=== PATIENT | male | born 1935 | race Caucasian/White ===

== ENCOUNTER 2024-11-21 15:49 | Inpatient (IN) | payer MEDICARE, BC ==
[~2024-11-21] VITALS: Ht 180.3 cm; Wt 79.5 kg
[2024-11-21] MEDS ORDERED: verapamil 2.5 mg/ml inj IV ONE (15:54)
[2024-11-21] MEDS ORDERED: LIDOcaine 1% (10mg/ml) 2ml vial ONE (15:54)
[2024-11-21] MEDS ORDERED: fentaNYL/PF 50MCG/1 ML 2ML syringe ONE (15:55)
[2024-11-21] MEDS ORDERED: heparin 1,000 UNITS/NS 500ml 0 ML ONE (15:55)
[2024-11-21] MEDS ORDERED: iohexol 350 MG/ML 50ML vial IV ONE (15:55)
[2024-11-21] MEDS ORDERED: heparin 1,000unit/ml 10ml vial 0 ML ONE (15:55)
[2024-11-21] MEDS ORDERED: midazolam 1 mg/ML 2ml injection ONE (15:55)
[2024-11-21] MEDS ORDERED: nitroGLYCERIN 500mcg/5mL D5W 0 ML IV ONE (15:55)
[2024-11-21] MEDS ORDERED: iohexol 350MG/ML 100ml bottle IV ONE (15:55)
[2024-11-21] MEDS ORDERED: pantoprazole 40 MG vial IV SCH (16:00)
--- NOTE | 2024-11-21 16:00 | Physician Documentation ---
History of Present Illness ~ Chief Complaint: Bloody Emesis Stated Complaint: STEMI Time Seen by MD: 15:50 Source: patient, EMS HPI The patient presents as a possible STEMI as well as vomiting blood. Per EMS, he arrives from home. He had multiple episodes of vomiting bright red blood, filled up a sink. EKG also showed findings concerning for STEMI and so he was diverted here for Cardiology evaluation. When I speak to the patient, he does report multiple episodes of vomiting blood, tells me that he covered his house in blood. He also reports having dark bloody stools. He denies having any chest pain. He denies any other chest related symptoms like shortness of breath. No dizziness or syncope. He denies any current abdominal pain. He denies any history of GI bleed. He tells me he is on a blood thinner. EMS reports that it is Plavix. EMS did give aspirin during transport. Medication Reconciliation Allergies: Coded Allergies: No Known Allergies (Unverified , 11/21/24) Review of Systems Cardiovascular: Denies: chest pain Gastrointestinal: Reports: hematemesis, rectal bleeding; Denies: abdominal pain Physical Exam Vital Signs: Heart Rate: 104, Respiratory Rate: 16, BP: 119/73, Pulse Oximetry: 90, Weight: 79.550 Oxygen Flow Rate: 0 Physical Exam General: This is a elderly man lying quietly in bed with his eyes closed, arrives by EMS HEENT: Atraumatic, oropharynx appears dry Heart: Tachycardia, appears regular, perfusion to the extremities is intact Lungs: normal work of breathing, normal oxygen saturation on room air Abdomen: Soft, nondistended, nontender all quadrants Neuro: Alert and oriented, no focal deficits Psychiatric: Calm and cooperative with exam Progress Results/Orders Results/Orders Orders - KESHAWN SHANKS MD Chest,Single View (11/21/24 15:50) Monitor (11/21/24 15:50) Saline Lock (11/21/24 15:50) Oxygen (11/21/24 15:50) Hs Troponin I W Calculations (11/21/24 18:50) Page Hospitalist (11/21/24 16:50) Completed Orders - KESHAWN SHANKS MD Chest,Single View (11/21/24 15:50) Cbc/Diff (11/21/24 15:50) PBNP (11/21/24 15:50) Electrocardiogram (11/21/24 15:50) CMP (11/21/24 15:50) Hs Troponin I W Calculations (11/21/24 15:50) Hs Troponin I W Calculations (11/21/24 17:50) Type And Screen (11/21/24 15:50) Pt Inr (11/21/24 15:50) PTT (11/21/24 15:50) Ondansetron Inj. (Zofran 4mg/2ml Vial) (11/21/24 15:55) Lidocaine 1%/Pf 2ml (Xylocaine-Mpf 1% Vi (11/21/24 15:54) Verapamil Inj (Verapamil Inj) (11/21/24 15:54) Midazolam 1 Mg/Ml 2ml Inj. (Versed 1 Mg/ (11/21/24 15:55) Fentanyl/Pf (Fentanyl 0.05 Mg/Ml Syringe (11/21/24 15:55) Iohexol 350mg/Ml 50ml Inj (Omnipaque 350 (11/21/24 15:55) Heparin 1,000unit/Ml 10ml Vial (Heparin (11/21/24 15:55) Iohexol 350mg/Ml 100ml (Omnipaque 350mg/ (11/21/24 15:55) Heparin 1,000 Units/Ns 500ml (Heparin 1, (11/21/24 15:55) Nitroglycerin 500mcg/5ml D5w (Nitroglyce (11/21/24 15:55) Pantoprazole 40mg Iv (Protonix 40mg Iv) (11/21/24 16:00) Pantoprazole 40mg Iv (Protonix 40mg Iv) (11/21/24 16:00) Lipase (11/21/24 15:58) Medications Received in ER Medications (Trade) Dose Ordered Sig/Edin Route PRN Reason Start Time Stop Time Status Last Admin Dose Admin (Zofran 4mg/2ml vial) 4 mg ONCE ONCE IV 11/21/24 15:55 11/21/24 15:56 DC 11/21/24 16:04 4 MG (Protonix 40mg IV) 40 mg ONCE ONCE IV 11/21/24 16:00 11/21/24 16:04 DC 11/21/24 16:05 40 MG Vital Signs 11/21/24 11/21/24 11/21/24 15:52 16:09 17:32 Pulse 104 93 Resp 16 16 22 B/P (MAP) 119/73 102/66 (78) Pulse Ox 90 91 O2 Flow Rate 0 0 Laboratory Tests Test 11/21/24 15:58 11/21/24 17:26 White Blood Count 5.3 Red Blood Count 4.61 L Hemoglobin 15.3 Hematocrit 44.4 Mean Corpuscular Volume 96.3 Mean Corpuscular Hemoglobin 33.1 H Mean Corpuscular Hemoglobin Concent 34.3 Red Cell Distribution Width 13.7 Platelet Count 140 Mean Platelet Volume 7.3 L Neutrophils (%) (Auto) 94.1 H Lymphocytes (%) (Auto) 3.8 L Monocytes (%) (Auto) 1.9 L Eosinophils (%) (Auto) 0 Basophils (%) (Auto) 0.2 Neutrophils # (Auto) 5.0 Lymphocytes # (Auto) 0.2 L Monocytes # (Auto) 0.1 Eosinophils # (Auto) 0.0 Basophils # (Auto) 0.0 CBC Comment Prothrombin Time 11.4 INR International Normalized Ratio 1.1 Activated Partial Thromboplast Time 24 Coagulation Comments Sodium Level 141 Potassium Level 3.5 Chloride Level 107 Carbon Dioxide Level 23.1 L Anion Gap 11 Blood Urea Nitrogen 29 H Creatinine 1.12 H Estimated GFR/1.73 m2 62 BUN/Creatinine Ratio 25.9 H Glucose Level 134 H Calcium Level 8.7 Total Bilirubin 1.2 H Aspartate Amino Transf (AST/SGOT) 39 H Alanine Aminotransferase (ALT/SGPT) 48 Alkaline Phosphatase 80 Troponin I High Sensitivity 11 17 Pro-B-Type Natriuretic Peptide 296 Total Protein 6.3 L Albumin 3.7 Globulin 2.6 L Albumin/Globulin Ratio 1.4 Lipase 19 Chemistry Comments Troponin I High Sens Percent Delta 54 Troponin I Hi Sens Absolute Change 6 EKG/XRAY/CT/US/VASC/MRI EKG : Additional Comment I personally interpreted the EKG and this shows: Sinus tachycardic, rate 103, Q-waves in the inferior leads, nonspecific T-wave changes in the lateral leads, no acute STEMI Chest X-Ray : Additional Comments I personally reviewed the x-ray, and it shows: No acute consolidation, pulmonary edema, or widened mediastinum Consults/PCP Consults/PCP : Additional Comment Consult: I spoke to the GI team, they recommended NPO at midnight and endoscopy in the morning. Consult: I spoke to the internal medicine service, for admission in the hospital Medical Decision Making Diff Dx GI Bleed:Consideration: Include: Bleeding diathesis, Blood loss anemia, Esophageal varicies, Gastritis, PUD Assessment The patient presents as a possible STEMI, however per his history and exam this appears more consistent with an upper GI bleed. His EKG here does not appear consistent with a STEMI, and so the STEMI code was discontinued. His troponin returns normal. He was given Zofran and IV Protonix. Labs show no acute anemia or other acute abnormality. Given his large volume hematemesis and concern for GI bleed, he will be admitted to the medicine service with plan for GI consult and endoscopy tomorrow. Departure Impression: Primary Impression: Hematemesis Referrals: NO PRIMARY CARE PROVIDER (PCP) Signature Scribe Signature: na Attestation: KESHAWN Nair MD November 21, 2024 16:00
[2024-11-21] MEDS: ondansetron/PF 4mg/2ml inj IV ONE (16:04)
[2024-11-21] MEDS: pantoprazole 40 MG vial IV ONE (16:05)
[2024-11-21 16:07] LABS: BASOPHILS % (AUTO) 0.2 % (0-1); EOSINOPHILS % (AUTO) 0 % (0-6); HEMATOCRIT 44.4 % (42.0-52.0); HEMOGLOBIN 15.3 g/dl (14.0-17.9); LYMPHOCYTES # (AUTO) 0.2 X10'3 (1.1-4.8); LYMPHOCYTES % (AUTO) 3.8 % (21-51); MEAN CORPUSCULAR HEMOGLOBIN 33.1 PG (27.0-31.0); MEAN CORPUSCULAR HGB CONC 34.3 g/dL (33.0-36.5); MEAN CORPUSCULAR VOLUME 96.3 FL (78-98); MEAN PLATELET VOLUME 7.3 FL (7.4-10.4); MONOCYTES # (AUTO) 0.1 X10'3 (0-0.9); MONOCYTES % (AUTO) 1.9 % (2-12); NEUTROPHILS % (AUTO) 94.1 % (42-75); PLATELET COUNT 140 X10'3 (140-440); RED BLOOD COUNT 4.61 X10'6 (4.70-6.10); RED CELL DISTRIBUTION WIDTH 13.7 % (11.5-14.5); WHITE BLOOD COUNT 5.3 X10'3 (4.5-11.0)
--- NOTE | 2024-11-21 16:17 | RADIOLOGY REPORT ---
EXAM: XR Chest, 1 View CLINICAL INDICATION: CP TECHNIQUE: Frontal view of the chest. COMPARISON: None FINDINGS: LUNGS AND PLEURAL SPACES: Unremarkable. No consolidation. No pneumothorax. HEART: Unremarkable. No cardiomegaly. MEDIASTINUM: Unremarkable. Normal mediastinal contour. BONES/JOINTS: Unremarkable. No acute fracture. OTHER FINDINGS: . IMPRESSION: No acute cardiopulmonary process.
[2024-11-21 16:19] LABS: APTT 24 SECONDS (22-32); INR 1.1 INR
[2024-11-21 16:23] LABS: PROTHROMBIN TIME 11.4 SECONDS (9.0-12.0)
[2024-11-21 16:24] LABS: ALANINE AMINOTRANSFERASE 48 U/L (12-78); ALBUMIN 3.7 G/DL (3.4-5.0); ALBUMIN/GLOBULIN RATIO 1.4 (1.1-1.5); ALKALINE PHOSPHATASE 80 IU/L (46-116); ANION GAP 11 (8-16); ASPARTATE AMINO TRANSFERASE 39 U/L (10-37); BILIRUBIN,TOTAL 1.2 MG/DL (0.1-1.0); BLOOD UREA NITROGEN 29 MG/DL (7-18); BUN/CREATININE RATIO 25.9 (10.0-20.0); CALCIUM 8.7 MG/DL (8.5-10.1); CHLORIDE 107 MMOL/L (99-107); CREATININE 1.12 MG/DL (0.60-1.10); GLUCOSE 134 MG/DL (70-104); POTASSIUM 3.5 MMOL/L (3.5-5.1); SODIUM 141 MMOL/L (135-145); TOTAL CARBON DIOXIDE 23.1 MMOL/L (24-32); TOTAL PROTEIN 6.3 G/DL (6.4-8.2); eCRCL 49 ML/MIN; eGFR 62 ML/MIN
[2024-11-21 16:30] LABS: PRO BRAIN NATRIURETIC PEPTIDE 296 PG/ML (0-450)
[2024-11-21] MEDS ORDERED: potassium Cl 40MEQ/1/2NS 520ml 520 ML IV PRN (17:00)
[2024-11-21] MEDS ORDERED: magnesium sulf-water 4G/100mL 100 ML IV PRN (17:00)
[2024-11-21] MEDS ORDERED: mag hydrox/Alum hydrox/simeth 30ml oral suspension PO PRN (17:00)
[2024-11-21] MEDS ORDERED: magnesium hydroxide 30ml (MOM) UD suspension PO PRN (17:00)
[2024-11-21] MEDS ORDERED: HYDROcodone/acetaminophen 5mg/325mg tablet PO PRN (17:00)
[2024-11-21] MEDS ORDERED: ondansetron 4mg rapidly disintigrating tab PO PRN (17:00)
[2024-11-21] MEDS ORDERED: potassium Cl 20 mEq SR tablet PO PRN ×2 (17:00)
[2024-11-21] MEDS ORDERED: ondansetron/PF 4mg/2ml inj IV PRN (17:00)
[2024-11-21] MEDS ORDERED: acetaminophen 325mg tablet PO PRN ×2 (17:00)
[2024-11-21] MEDS ORDERED: magnesium sulf-water 2g/50mL 50 ML IV PRN (17:00)
--- NOTE | 2024-11-21 17:08 | ELECTROCARDIOGRAPH REPORT ---
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
[2024-11-21 17:36] LABS: LIPASE 19 U/L (16-77)
--- NOTE | 2024-11-21 17:39 | HISTORY AND PHYSICAL ---
History & Physical Providers to CC ~ History of Present Illness Reason for Admit\\Complaint: GIB History of Present Illness John Garcia is a 89-year-old male with a past medical history of [place] s/p CABG who was brought to the ED by his with chief complaints of multiple large amount of bright red vomitus and dark bloody stools x 1 day. Patient is a poor historian and family not at bedside but states he takes "blood thinner" at home. EMS reports Plavix. Patient denies prior CVA, cardiac arrhythmia, DVT/PE, or GIB. Patient denies chest pain, palpitations, shortness of breath, abdominal pain, n/v/d, dizziness, loss of consciousness, fever, chills. Initial diagnostic findings are are notable for EKG indicating sinus tachycardia at [address] elevation/depression but otherwise unremarkable including INR, H/H, chest x- ray, and negative troponin. GI Dr. Real was consulted. Allergies: Coded Allergies: No Known Allergies (Unverified , 11/21/24) Past Medical History Past Medical History [place] s/p CABG Past Surgical History Surgical History Comment CABG Past Social History Social History Comment Alcohol: Denies Tobacco: Denies Illicit drug use: Denies Living situation: Lives at home with spouse ROS ROS Other than positives in HPI, all 14 review of systems are negative Exam Vitals: Vital Signs Date Time Temp Pulse Resp B/P (MAP) Pulse Ox O2 Delivery O2 Flow Rate FiO2 11/21/24 16:09 16 11/21/24 15:52 104 90 0 General: A&Ox 3, NAD HEENT: Normocephalic, PERRLA Neck: Supple, trachea midline, no JVD Chest: Clear to auscultation bilaterally Cardiovascular: RRR, S1&S2 Abdomen: Soft and nontender Extremities: No cyanosis/clubbing/or edema Central Nervous System: CN II-XII intact, no focal deficits Musculoskeletal: No paraspinal muscle tenderness, no muscle spasm Skin: Warm and intact Diagnostic Data Last Recorded Lab Results: 11/21/24 1558 11/21/24 1558 Diagnostic Data: Laboratory Tests Test 11/21/24 15:58 Prothrombin Time 11.4 SECONDS (9.0-12.0) INR International Normalized Ratio 1.1 INR Activated Partial Thromboplast Time 24 SECONDS (22-32) Coagulation Comments Additional Plan # GIB # Transaminitis, mild # Hx [place] s/p CABG -Hgb 15.3, INR 1.1, trop negative, wbc wnl, pBNP 290, EKG sinus tachycardia at [address] elevation/depression, negative CXR -start PPI, NPO, transfuse as needed to target >8.0g/dL -follow US abdomen, lipase; GI Dr. Real consulted DVT/VTE Prophylaxis: SCDs Code Status: Full Code I spent a total of 35 minutes discussing Advanced Care Planning measures with the patient. Advance care planning: Discussed with patient the importance of advance care planning in case of emergent situation. We discussed various resuscitative measures/ ACP with the patient at the time of admission. Patient voiced understanding and patient has decided on a full code status. Date of Service: November 21, 2024 Billing Provider: IMANI YBARRA Common Visit Codes: 21336-ANXCNFN INP/OBS CARE (HIGH) Secondary Visit Codes: 25052-HMCKLYAM CARE PLAN 30 MINUTES IMANI YBARRA November 21, 2024 17:39
--- NOTE | 2024-11-21 18:12 | RADIOLOGY REPORT ---
Procedure: US ULTRASOUND OF [facility] Study Date and Requested Time: 11/21/2024 05:25 PM History: elevated t.bili, hepatitis Comparison: None Technique: Multiple high resolution blanchard-scale images obtained of the right upper quadrant of the abd omen with color Doppler for evaluation of blood flow and vascularity as indicated. Findings: Liver normal in size, measuring 15.3 cm in length, with nonspecific multiple echogenic foci and terry l contours. No evidence of intrahepatic or extrahepatic ductal dilatation. 1.9 cm hepatic cyst. Comm on bile duct measures 0.4 cm in diameter. Gallbladder unremarkable with no evidence of abnormal wall thickening, gallstones, biliary sludge, or pericholecystic fluid. Negative sonographic Fontaine's sign. Pancreas is obscured by bowel gas. Right kidney measures 8.6 cm in length, with normal contours, echotexture, and cortical thickness. No evidence of hydronephrosis, calculi, cystic or solid renal lesions. Partially visualized inferior vena cava unremarkable. Impression: Limited evaluation due to overlying bowel gas. 1.9 cm right hepatic lobe cysts. Multiple nonspecific echogenic foci within the liver. Pancreas is obscured by bowel gas. Mild atrophy of the right kidney.
[2024-11-21] MEDS ORDERED: CLOP-32 PO (18:41)
[2024-11-21] MEDS ORDERED: THIA50TA10 PO (18:41)
[2024-11-21] MEDS ORDERED: ATOR40TA PO (18:41)
[2024-11-21] MEDS ORDERED: EZET10TA6 PO (18:41)
[2024-11-21] MEDS ORDERED: ASPI-611 PO (18:41)
[2024-11-21 19:10] VITALS: BP 106/57; PULSE 84; RESP 14; RESP 16; TEMP 97.3; O2SAT 95; O2SAT 96
[2024-11-21] MEDS: K and/or MAG REPLACEMENT MC SCH (20:00)
[2024-11-21] MEDS: docusate sod 100mg capsule PO SCH (20:00)
[2024-11-21] MEDS: pantoprazole 40MG/NS 100ML BAG 100 ML IV SCH (20:14)
[2024-11-21 22:00] VITALS: BP 106/56; PULSE 60; RESP 14; TEMP 96.9; O2SAT 95
[2024-11-21 22:59] VITALS: BP 106/57; PULSE 84; RESP 16; TEMP 97.3; O2SAT 95
[2024-11-21] MEDS: normal saline 500ml IV soln 500 ML IV ONE (23:00)
[2024-11-21 23:44] LABS: BILIRUBIN,URINE NEGATIVE (Neg); CLARITY,URINE CLEAR (Clear); COLOR,URINE YELLOW (Yellow); GLUCOSE, URINE NEGATIVE (Neg); KETONES,URINE TRACE mg/dl (Neg); LEUKOCYTE ESTERASE ,URINE NEGATIVE (Neg); NITRITES, URINE NEGATIVE (Neg); OCCULT BLOOD,URINE NEGATIVE (Neg); PROTEIN,URINE NEGATIVE (Neg); UROBILINOGEN,URINE 0.2 E.U/dL (0.2-1.0)
[2024-11-21 23:51] LABS: UA COLLECTION TYPE NON-SPECIFIED
[2024-11-22] VITALS (23 sets, daily range): BP systolic 95–128; BP diastolic 50–73; PULSE 53–95; RESP 12–22; TEMP 96.9–98.9; O2SAT 95–100
[2024-11-22] MEDS: normal saline 1000ml 1,000 ML IV SCH (00:31)
[2024-11-22 02:10] LABS: BASOPHILS % (AUTO) 0.4 % (0-1); EOSINOPHILS % (AUTO) 0.1 % (0-6); HEMATOCRIT 42.8 % (42.0-52.0); HEMOGLOBIN 14.3 g/dl (14.0-17.9); LYMPHOCYTES % (AUTO) 17.9 % (21-51); MEAN CORPUSCULAR HEMOGLOBIN 32.3 PG (27.0-31.0); MEAN CORPUSCULAR HGB CONC 33.3 g/dL (33.0-36.5); MEAN CORPUSCULAR VOLUME 96.9 FL (78-98); MEAN PLATELET VOLUME 7.5 FL (7.4-10.4); MONOCYTES # (AUTO) 0.8 X10'3 (0-0.9); MONOCYTES % (AUTO) 14.1 % (2-12); NEUTROPHILS # (AUTO) 3.7 X10'3 (1.8-7.7); NEUTROPHILS % (AUTO) 67.5 % (42-75); PLATELET COUNT 140 X10'3 (140-440); RED BLOOD COUNT 4.41 X10'6 (4.70-6.10); RED CELL DISTRIBUTION WIDTH 13.6 % (11.5-14.5); WHITE BLOOD COUNT 5.5 X10'3 (4.5-11.0)
[2024-11-22 02:26] LABS: ALANINE AMINOTRANSFERASE 43 U/L (12-78); ALBUMIN 3.3 G/DL (3.4-5.0); ALBUMIN/GLOBULIN RATIO 1.4 (1.1-1.5); ALKALINE PHOSPHATASE 67 IU/L (46-116); ANION GAP 6 (8-16); ASPARTATE AMINO TRANSFERASE 42 U/L (10-37); BILIRUBIN,TOTAL 0.9 MG/DL (0.1-1.0); BLOOD UREA NITROGEN 28 MG/DL (7-18); BUN/CREATININE RATIO 24.8 (10.0-20.0); CALCIUM 8.3 MG/DL (8.5-10.1); CHLORIDE 109 MMOL/L (99-107); CHOL/HDL RATIO 1.5 (0.00-4.99); CHOLESTEROL 82 MG/DL (0-200); CREATININE 1.13 MG/DL (0.60-1.10); GLUCOSE 99 MG/DL (70-104); HDL CHOLESTEROL 55 MG/DL (35-60); LDL CHOLESTEROL 24 MG/DL (50-100); MAGNESIUM 2.3 MG/DL (1.5-2.4); POTASSIUM 3.7 MMOL/L (3.5-5.1); SODIUM 144 MMOL/L (135-145); TOTAL CARBON DIOXIDE 28.7 MMOL/L (24-32); TOTAL PROTEIN 5.7 G/DL (6.4-8.2); TRIGLYCERIDES 34 MG/DL (20-135); eCRCL 48 ML/MIN; eGFR 61 ML/MIN
[2024-11-22 02:36] LABS: HEMOGLOBIN A1C 5.8 % (4.5-6.2)
--- NOTE | 2024-11-22 11:00 | PROGRESS NOTE ---
Daily Progress Note Providers to CC ~ Antibiotic Timeout Antibiotic Ordered?: No Subjective No acute events overnight. Patient examined at bedside. No new complaints, not in acute distress. Patient denies chest pain, sob, palpitations, abdominal pain, n/v/d. Vss, labs notable for Hgb drop of 1.0 g/dL and otherwise unremarkable. Patient has not experienced reported large hematemesis that occurred at home. Patient underwent EGD today with esphagitis possible without active bleeding. Objective Vital Signs Date Time Temp Pulse Resp B/P (MAP) Pulse Ox O2 Delivery O2 Flow Rate FiO2 11/22/24 06:30 56 11/22/24 06:00 97.2 12 95/50 (65) 98 Room Air 11/21/24 19:10 0 21 Result Diagram: 11/22/24 0151 11/22/24 0151 Physical Exam General: A&Ox3, NAD HEENT: Normocephalic, PERRLA Neck: Supple, trachea midline, no JVD Chest: Clear to auscultation bilaterally Cardiovascular: RRR, S1&S2 Abdomen: Soft and nontender Extremities: No cyanosis/clubbing/or edema Central Nervous System: CN II-XII intact, no focal deficits Musculoskeletal: No paraspinal muscle tenderness, no muscle spasm Skin: Warm and intact Coagulation Studies Laboratory Tests Test 11/21/24 15:58 Prothrombin Time 11.4 SECONDS (9.0-12.0) INR International Normalized Ratio 1.1 INR Activated Partial Thromboplast Time 24 SECONDS (22-32) Coagulation Comments Problem\Assessment\Plan # GIB # Transaminitis, mild # Hx [place] s/p CABG -Hgb 15.3, INR 1.1, trop negative, wbc wnl, pBNP 290, EKG sinus tachycardia at [address] elevation/depression, negative CXR -start PPI, NPO, transfuse as needed to target >8.0g/dL -follow US abdomen, lipase; GI Dr. Real consulted, will follow -11/22: Hgb drop of 1.0 g/dL, underwent EGD today with esphagitis possible without active bleeding DVT/VTE Prophylaxis: SCDs Code Status: Full Code Date of Service: November 22, 2024 Billing Provider: IMANI YBARRA Common Visit Codes: 06093-CCPORKEVAF INP/OBS CARE(HIGH) IMANI YBARRA November 22, 2024 11:00
[2024-11-22] MEDS ORDERED: fentaNYL/PF 50MCG/1 ML 2ML syringe ONE (12:52)
[2024-11-22] MEDS ORDERED: LIDOcaine 2% Viscous 15ml cup ONE (12:52)
[2024-11-22] MEDS ORDERED: MIDAZolam 1 MG/ML 5ML VIAL ONE (12:52)
[2024-11-22] MEDS: pantoprazole 40 MG vial IV SCH (19:44)
[2024-11-22] MEDS: HYDROcodone/acetaminophen 10/325mg tab PO PRN (19:46)
--- NOTE | 2024-11-22 20:26 | CONSULTATION ---
DATE OF CONSULTATION: 11/22/2024 DICTATING PHYSICIAN: Elva Real MD REASON FOR CONSULTATION: Anemia, Hemoccult-positive stool. HISTORY OF PRESENT ILLNESS: The patient is a 49-year-old female, who was admitted for shortness of breath and anemia. The patient takes Eliquis for VTE. She then developed weakness and shortness of breath and presented to the ED found to have anemia and positive stool. The patient denies hematemesis, nausea, vomiting, abdominal pain, bright red blood per rectum. She has not had a colonoscopy before. Denies family history including cancer or polyps. PHYSICAL EXAMINATION: GENERAL: The patient is alert, awake, and in no acute distress. HEENT: Sclerae are anicteric. NECK: Supple. CARDIOVASCULAR: Regular rate. ABDOMEN: Soft. No guarding or rigidity. EXTREMITIES: Lower extremities, no edema. IMPRESSION AND PLAN: The patient is a 49-year-old female presenting with shortness of breath and found to have anemia, positive stool. Given her presentation, EGD and colonoscopy would be indicated for further evaluation. Meanwhile, I would recommend to prep her with GoLYTELY, then keep her n.p.o., optimize her cardiopulmonary condition. Watch her hemoglobin closely and transfuse if indicated. Then keep her n.p.o. We will plan for EGD and colonoscopy. The indications, risks, and alternatives of the procedures, especially risks of infection, bleeding, perforation, cardiopulmonary decompression, were discussed with her in detail. She understood and agreed to proceed. Elva Real MD TID: [id number] RECEIPT: [id number] HL/DAGOBERTO/LEONORAA
--- NOTE | 2024-11-22 20:27 | CONSULTATION ---
DATE OF CONSULTATION: 11/22/2024 DICTATING PHYSICIAN: Elva Real MD REASON FOR CONSULTATION: Anemia, melena. HISTORY OF PRESENT ILLNESS: The patient is an 89-year-old gentleman with multiple comorbidities, presents with nausea, vomiting, first coffee ground, then bright red blood. The patient is on Plavix. The patient denies chest pain or shortness of breath. PHYSICAL EXAMINATION: GENERAL: The patient is alert, awake, in no acute distress. HEENT: Sclerae are anicteric. NECK: Supple. CARDIOVASCULAR: Regular rate. ABDOMEN: Soft. No guarding or rigidity. IMPRESSION AND PLAN: The patient is an 89-year-old gentleman, presented with hematemesis. Given his presentation, EGD is indicated for further evaluation. Given his advanced age and comorbidities, he has increased risk for the procedure. Discussed with him regarding the indications, risks, and alternatives of the procedure, especially risks of infection, bleeding, perforation, cardiopulmonary decompression. He understood and agreed to proceed. Meanwhile, we would recommend to optimize his cardiopulmonary condition, put him on a PPI, avoid NSAIDs, and keep him n.p.o. We will plan for EGD. Elva Real MD TID: [id number] RECEIPT: [id number] FABIAN/AMADEO/LUCAS
[2024-11-23 02:00] VITALS: BP 108/62; PULSE 56; RESP 16; TEMP 97.2; O2SAT 96
[2024-11-23 06:00] VITALS: BP 148/73; PULSE 68; RESP 16; TEMP 97.3; O2SAT 97
[2024-11-23 06:26] LABS: BASOPHILS % (AUTO) 0.8 % (0-1); EOSINOPHILS # (AUTO) 0.2 X10'3 (0-0.9); HEMATOCRIT 42.2 % (42.0-52.0); HEMOGLOBIN 14.5 g/dl (14.0-17.9); LYMPHOCYTES # (AUTO) 1.5 X10'3 (1.1-4.8); LYMPHOCYTES % (AUTO) 34.9 % (21-51); MEAN CORPUSCULAR HGB CONC 34.3 g/dL (33.0-36.5); MEAN CORPUSCULAR VOLUME 96.1 FL (78-98); MEAN PLATELET VOLUME 7.6 FL (7.4-10.4); MONOCYTES # (AUTO) 0.6 X10'3 (0-0.9); MONOCYTES % (AUTO) 13.5 % (2-12); NEUTROPHILS % (AUTO) 46.8 % (42-75); PLATELET COUNT 127 X10'3 (140-440); RED BLOOD COUNT 4.39 X10'6 (4.70-6.10); RED CELL DISTRIBUTION WIDTH 13.4 % (11.5-14.5); WHITE BLOOD COUNT 4.2 X10'3 (4.5-11.0)
[2024-11-23 07:00] LABS: ALANINE AMINOTRANSFERASE 42 U/L (12-78); ALBUMIN 2.9 G/DL (3.4-5.0); ALBUMIN/GLOBULIN RATIO 1.2 (1.1-1.5); ALKALINE PHOSPHATASE 59 IU/L (46-116); ANION GAP 8 (8-16); ASPARTATE AMINO TRANSFERASE 59 U/L (10-37); BILIRUBIN,TOTAL 0.8 MG/DL (0.1-1.0); BLOOD UREA NITROGEN 19 MG/DL (7-18); CALCIUM 8.2 MG/DL (8.5-10.1); CHLORIDE 109 MMOL/L (99-107); GLUCOSE 83 MG/DL (70-104); MAGNESIUM 1.9 MG/DL (1.5-2.4); SODIUM 142 MMOL/L (135-145); TOTAL CARBON DIOXIDE 25.2 MMOL/L (24-32); TOTAL PROTEIN 5.3 G/DL (6.4-8.2); eCRCL 54 ML/MIN; eGFR 71 ML/MIN
[2024-11-23 08:00] VITALS: RESP 12; O2SAT 98
[2024-11-23 10:00] VITALS: BP 111/48; PULSE 56; RESP 16; TEMP 97.3; O2SAT 95
[2024-11-23] MEDS ORDERED: PANT40TA54 PO (10:53)
--- NOTE | 2024-11-23 19:00 | DISCHARGE SUMMARY ---
Discharge Summary Providers to CC ~ Discharge Summary Admission Diagnosis: GIB Hospital Course DATE OF ADMISSION: 11/21/24 DATE OF DISCHARGE: 11/23/24 Discharge Diagnosis\\Comment: GIB Hematemesis LA grade B esophagitis Lis-Mackay tear Hiatal hernia Transaminitis, mild Hx [place] s/p CABG Operations\\Procedures: EGD (11/22/24) Consultants: GI Elva Randhawa Complications: None Condition on DC: Stable New Medications: Pantoprazole Sodium (Pantoprazole Sodium) 40 Mg Tablet.dr 40 MG PO BID for 30 Days, #60 TAB.SR Continued Medications: Atorvastatin Calcium* (Lipitor*) 40 Mg Tablet 1 TAB PO DAILY for 30 Days, #30 TAB Ezetimibe (Zetia) 10 Mg Tablet 1 TAB PO DAILY for 30 Days, #30 TAB 0 Refills Thiamine HCl (Vitamin B-1) 50 Mg Tablet 1 TAB PO DAILY for 30 Days, #60 TAB 0 Refills Discontinued Medications: Aspirin (Aspir 81) 81 Mg Tablet.dr 1 TAB PO MWF for 30 Days, #30 TAB Clopidogrel Bisulfate (Plavix) 75 Mg Tablet 1 TAB PO DAILY for 30 Days, #30 TAB 0 Refills Discharge Summary: History of Present Illness John Garcia is a 89-year-old male with a past medical history of [place] s/p CABG who was brought to the ED by his with chief complaints of multiple large amount of bright red vomitus and dark bloody stools x 1 day. Patient is a poor historian and family not at bedside but states he takes a "blood thinner" at home. EMS reports Plavix. Patient denies prior CVA, cardiac arrhythmia, DVT/PE, or GIB. Patient denies chest pain, palpitations, shortness of breath, abdominal pain, n/v/d, dizziness, loss of consciousness, fever, chills. Initial diagnostic findings are are notable for EKG indicating sinus tachycardia at [address] elevation/depression but otherwise unremarkable including INR, H/H, chest x-ray, and negative troponin. GI Dr. Real was consulted. Hospital Course Patient started on PPI and supportive care. Patient underwent EGD on 11/22/24 with findings notable for LA grade B esophagitis, likely Lis-Mackay tear, and medium-sized hiatal hernia without evidence of active bleeding wrist recommendation to continue PPI and to monitor hemogram and transfuse as needed. Patient did not experience further complications throughout the entire hospital stay and remained clinically and hemodynamically stable. Patient did not experience reported hematemesis during the entire hospital stay. Patient was s een and examined on the day of discharge. On day of discharge, vss and labs unremarkable. All labs, diagnostic workups, discharge plan discussed with patient in details during visit before discharge. All questions and concerns answered to the best of my professional knowledge. Patient was evaluated by Physical therapy service with recommendation for home discharge. Patient is to be discharged to home to self and to follow-up with PCP within 2 weeks. Physical Exam General: A&Ox3, NAD HEENT: Normocephalic, PERRLA Neck: Supple, trachea midline, no JVD Chest: Clear to auscultation bilaterally Cardiovascular: RRR, S1&S2 Abdomen: Soft and nontender Extremities: No cyanosis/clubbing/or edema Central Nervous System: CN II-XII intact, no focal deficits Musculoskeletal: No paraspinal muscle tenderness, no muscle spasm Skin: Warm and intact *Problems/Diagnosis: (1) Hematemesis Status: Acute Total Time Spent on D/C: > 30 Minutes Date of Service: November 23, 2024 Billing Provider: IMANI YBARRA Common Visit Codes: 37199-CBP/OBS DISCH DAY >30min IMANI YBARRA November 23, 2024 18:56
== END 2024-11-23 15:05 | disposition home or self-care (01) | DRG 368 ==
LOC: ER 15:50 → ED HOLD 17:03 → EDBEDREQ 19:27 → PCU 3S 19:39
PROVIDERS: ADMIT Nurse Practitioner Family; ATTEND Nurse Practitioner Family
PROC: 0DJ08ZZ Inspection of Upper Intestinal Tract, Via Natural or Artificial Opening Endoscopic (ICD-10-PCS; principal; 2024-11-22)
DX: K20.91 Esophagitis, unspecified with bleeding (principal); K22.6 Gastro-esophageal laceration-hemorrhage syndrome; D64.9 Anemia, unspecified; R74.01 Elevation of levels of liver transaminase levels; K44.9 Diaphragmatic hernia without obstruction or gangrene; Z79.02 Long term (current) use of antithrombotics/antiplatelets; Z95.1 Presence of aortocoronary bypass graft; Z87.19 Personal history of other diseases of the digestive system; I25.2 Old myocardial infarction; Z79.899 Other long term (current) drug therapy
CPT/HCPCS: 36415; 43235; 71045; 76700; 80053; 80061; 81003; 82948; 83036; 83690; 83735; 83880; 84484; 85025; 85610; 85730; 86885; 86900; 86901; 87081; 93005; 96361; 96365; 96366; 96375; 97116; 97161; 97530; 99152; 99285; A6258; C1725; C1758; C1894; G0378; J1644; J2003; J2250; J2405; J2470; J3010; J3490; J7030; J7040; Q9967